=== PATIENT | female | born 1980 | race Hispanic/Latino ===

== ENCOUNTER 2025-07-18 15:13 | Emergency (ER) | payer BC ==
[2025-07-18 16:05] LABS: #Basophils 0.04 10x3/uL (0.0-0.2); #Eosinophils 0.10 10x3/uL (0.0-0.7); #Monocytes 0.58 10x3/uL (0.11-0.59); #Neutrophils 4.24 10x3/uL (1.40-6.50); %Basophils 0.6 % (0.0-1.0); %Eosinophils 1.4 % (0.0-10.0); %Lymphocytes 30.6 % (21.0-51.0); %Monocytes 8.1 % (0.0-10.0); %Neutrophils 59.0 % (42.0-75.0); Hematocrit 42.6 % (36.0-47.0); Hemoglobin 14.2 g/dL (12.0-16.0); Mean Corpuscular Hemoglobin 28.5 pg (27.0-31.0); Mean Corpuscular Volume 85.4 fL (78.0-98.0); Platelet Count 394 10x3/uL (130-400); Red Blood Cell (RBC) Count 4.99 mill/uL (4.20-5.40); White Blood Cell (WBC) Count 7.18 10x3/uL (4.8-10.8)
[2025-07-18 16:19] LABS: BHCG - Serum Negative (NEGATIVE); Pregs Control Background? CLEAR/WHITE (CLR/WHITE); Pregs Control Bar Appear? YES (CONTROL BAR)
[2025-07-18 16:24] LABS: ALT (SGPT) 30 U/L (Less than 34); AST (SGOT) 28 U/L (11-34); Albumin 4.1 g/dL (3.1-4.5); Alkaline Phosphatase 134 U/L (40-110); Anion Gap 13 mmol/L (10-20); BUN (Urea Nitrogen) 10 mg/dL (7.0-18.7); Bilirubin, Total 0.3 mg/dL (0.3-1.2); Calc. Creatinine Clearance 0 mL/min (70-130); Calcium 9.2 mg/dL (7.8-10.44); Carbon Dioxide 25 mmol/L (22-29); Chloride 103 mmol/L (98-107); Globulin 3.6 g/dL (2.4-3.5); Glucose 117 mg/dL (70-105); Potassium 3.8 mmol/L (3.5-5.1); Sodium 137 mmol/L (136-145)
[2025-07-18] MEDS ORDERED: Ondansetron PF 4 MG/2 ML Vial ONE (16:42)
== END 2025-07-18 16:53 | disposition home or self-care (01) ==
LOC: ERS 15:13
DX: I10 Essential (primary) hypertension (principal); Z79.899 Other long term (current) drug therapy
CPT/HCPCS: 70450; 71045; 80053; 83880; 84484; 84703; 85025; 93005; 96374; 96375; J2060; J2405